=== PATIENT | male | born 2000 | race Caucasian/White ===

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

== ENCOUNTER 2024-05-25 12:38 | Inpatient (IN) ==
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
[2024-05-25] MEDS: OPTIRAY 320 100ml IV ONE (13:02)
[2024-05-25 13:12] LABS: iSTAT Creatinine 0.9 mg/dl (0.6-1.3); iSTAT Ionized Calcium 1.17 mmol/l (1.12-1.32)
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
[2024-05-25] MEDS: ACETAMINOPHEN 1,000 MG/100 ML VIAL IV STA (14:09)
[2024-05-25] MEDS: SODIUM CHLORIDE 0.9% 1,000 ML IV SCH (14:09)
[2024-05-25 14:13] LABS: Albumin Globulin Ratio 1.9 (0.9-2); Albumin Level 5.2 gm/dl (3.4-5.0); BUN Creatinine Ratio 17.3 (10-20); Bilirubin,Total 0.6 mg/dl (0.2-1.0); Calcium 10.1 mg/dl (8.6-10.3); Creatinine Clr Calc Pharmacy 131.5 ml/min; Est GFR (African American) 125.4 ml/min; Est GFR (Non-African American) 108.2 ml/min; Globulin 2.8 gm/dl (2.5-4.0)
--- NOTE | 2024-05-25 14:14 | XRay Report ---
XR ankle RT min 3V routine CLINICAL HISTORY: pain, [facility] TECHNIQUE: 3 views of the right ankle were obtained. Comparison: None available at the time of this dictation. FINDINGS: No fractures are present. The joint spaces are well preserved. No soft tissue abnormality is seen. IMPRESSION: No evidence of acute bony injury. ACT 112: Negative or not required by law. Electronically signed by: Augustine Hackett M.D. 05/25/2024 2:13 PM
--- NOTE | 2024-05-25 14:15 | XRay Report ---
XR humerus LT 2V CLINICAL HISTORY: pain, [facility] TECHNIQUE: 2 radiographic views of the left humerus were obtained. Comparison: None available at the time of this dictation. FINDINGS: There is no evidence for fracture, subluxation or dislocation. The visualized portion of the shoulder and elbow joints are unremarkable. The overlying soft tissues are unremarkable. IMPRESSION: No acute osseous injury. ACT 112: Negative or not required by law. Electronically signed by: Augustine Hackett M.D. 05/25/2024 2:14 PM
[2024-05-25 14:48] LABS: Hematocrit (blood only) 47.8 % (42.0-52.0); Hemoglobin 16.2 g/dl (14.0-18.0); Mean Corpuscular Hemoglobin 28.3 pg (25.0-34.0); Mean Corpuscular Hgb Conc 33.9 g/dL (32.0-36.0); Mean Corpuscular Volume 83.6 fL (80.0-100.0); Mean Platelet Volume 10.6 fL (9.4-12.4); Platelet Count 335 K/uL (130-400); RDW Standard Deviation 39.2 fL (36.4-46.3); Red Blood Count 5.72 M/uL (4.70-6.10); White Blood Count 36.73 K/ul (4.8-10.8)
[2024-05-25 15:08] LABS: Basophils # (auto) 0.16 K/uL (0.00-0.20); Basophils % (auto) 0.4 %; Eosinophils # (auto) 0.07 K/uL (0.00-0.50); Eosinophils % (auto) 0.2 %; Immature Granulocytes # (auto) 0.62 K/uL (0.01-0.20); Immature Granulocytes % (auto) 1.7 %; Lymphocytes # (auto) 1.88 K/uL (1.20-3.40); Lymphocytes % (auto) 5.1 %; Monocytes # (auto) 1.57 K/uL (0.11-0.59); Monocytes % (auto) 4.3 %; Neutrophils # (auto) 32.43 K/uL (1.40-6.50); Neutrophils % (auto) 88.3 %
[2024-05-25 15:11] LABS: INR 1.1 (0.9-1.1); Prothrombin Time 11.4 Seconds (9.0-12.0)
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
[2024-05-25] MEDS: LIDOCAINE 5% 1 PATCH TD STA (17:44)
[2024-05-25] MEDS ORDERED: MoRPHine SULFATE 2 MG/ML CARP IV PRN (19:11)
[2024-05-25] MEDS ORDERED: ONDANSETRON INJ 2 MG/ML 2 ML VIAL IV PRN (19:11)
[2024-05-25] MEDS: KETOROLAC TROMETHAMINE 15 MG/ML VIAL IV PRN (20:06)
[2024-05-25 21:22] LABS: Appearance Urine Clear (Clear); Bacteria Urine Automated None Seen (None Seen); Bilirubin Urine Negative (Negative); Blood Urine Trace (Negative); Cast Urine Automated 0-2 /lpf (0-2); Color Urine Yellow; Epithelial Cell Urine Auto 0-2 /hpf (0-2); Glucose Urine UA Negative (Negative); Ketones Urine Negative (Negative); Leukocyte Esterase Urine Negative (Negative); Nitrite Urine Negative (Negative); Protein Urine Negative (Negative); Specific Gravity Urine 1.025 (1.000-1.030); Urobilinogen Urine Negative (Negative); WBC Urine Automated 0-5 /hpf (0-5)
[2024-05-25 21:43] LABS: Hematocrit (blood only) 44.2 % (42.0-52.0)
[2024-05-26 04:32] LABS: BUN Creatinine Ratio 12.3 (10-20); Calcium 9.3 mg/dl (8.6-10.3); Creatinine Clr Calc Pharmacy 155.7 ml/min; Est GFR (African American) 145.2 ml/min; Est GFR (Non-African American) 125.3 ml/min; Potassium 3.9 mmol/L (3.5-5.1)
[2024-05-26] MEDS: CALCITONIN SALMON NA 200 IU/AC 3.7 ML BTL SCH (08:28)
[2024-05-26 08:33] LABS: Basophils % (auto) 0.6 %; Eosinophils # (auto) 0.13 K/uL (0.00-0.50); Eosinophils % (auto) 0.7 %; Hematocrit (blood only) 43.2 % (42.0-52.0); Hemoglobin 14.6 g/dl (14.0-18.0); Immature Granulocytes # (auto) 0.08 K/uL (0.01-0.20); Immature Granulocytes % (auto) 0.5 %; Lymphocytes # (auto) 2.75 K/uL (1.20-3.40); Lymphocytes % (auto) 15.9 %; Mean Corpuscular Hemoglobin 28.5 pg (25.0-34.0); Mean Corpuscular Hgb Conc 33.8 g/dL (32.0-36.0); Mean Corpuscular Volume 84.4 fL (80.0-100.0); Mean Platelet Volume 10.7 fL (9.4-12.4); Monocytes # (auto) 1.17 K/uL (0.11-0.59); Monocytes % (auto) 6.7 %; Neutrophils # (auto) 13.12 K/uL (1.40-6.50); Neutrophils % (auto) 75.6 %; Platelet Count 307 K/uL (130-400); Red Blood Count 5.12 M/uL (4.70-6.10); White Blood Count 17.35 K/ul (4.8-10.8)
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
[2024-05-26] MEDS: ACETAMINOPHEN 325 MG TAB PO PRN (12:23)
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
--- NOTE | 2024-05-27 22:55 | Electrocardiogram Report ---
Test Reason : Blood Pressure : / mmHG Vent. Rate : 068 BPM Atrial Rate : 068 BPM P-R Int : 174 ms QRS Dur : 090 ms QT Int : 352 ms P-R-T Axes : 072 081 048 degrees QTc Int : 374 ms Normal sinus rhythm Normal ECG When compared with ECG of 11-JUL-2017 12:17, No significant change was found Confirmed by Michael El ([id number]) on 05/27/2024 10:55:42 PM Referred By: Confirmed By:Michael El
== END 2024-05-26 18:17 | disposition home or self-care (01) | DRG 552 ==
LOC: ED 12:38 → 3N 16:25 → SUATTDRO 16:25 → 3N 18:58